=== PATIENT | female | born 1970 | race Two or more races ===

== ENCOUNTER 2024-11-28 01:41 | Inpatient (IN) | payer BC, OTHER ==
[2024-11-28] VITALS (15 sets, daily range): BP systolic 108–162; BP diastolic 54–87; PULSE 78–89; RESP 12–20; TEMP 97.5–101.9; O2SAT 92–98
[~2024-11-28] VITALS: Ht 172.7 cm; Wt 180.2 kg
[2024-11-28 02:26] LABS: Hematocrit 39.1 % (36.0-46.0); Hemoglobin 13.0 g/dL (12.2-16.2); Mean Corpuscular Hemoglobin 30.3 pg (28.0-32.0); Mean Corpuscular Volume 91.4 fL (80.0-100.0); Nucleated Red Blood Cells % 0.1 %
[2024-11-28 02:35] LABS: Chloride 103 mmol/L (98-107); Potassium 3.5 mmol/L (3.5-5.1); Sodium 140 mmol/L (136-145)
[2024-11-28 02:37] LABS: Calcium 9.1 mg/dL (8.7-10.4)
[2024-11-28 02:38] LABS: Anion Gap 8 (5-15); Carbon Dioxide 29 mmol/L (20-31)
[2024-11-28 02:41] LABS: Glucose 95 mg/dL (74-106)
[2024-11-28 02:42] LABS: BUN/Creatinine Ratio 15.6 (10.0-20.0); Blood Urea Nitrogen 17 mg/dL (9-23)
--- NOTE | 2024-11-28 02:42 | ED.PDOC ---
History of Present Illness HPI Comments 54-year-old female, with a history of CHF, COPD, and HTN, is brought in by ambulance as a transfer from [facility] ([facility]) for chief complaint of shortness of breath. Per [facility] transfer record, patient was transferred after being, initially, evaluated, due to being suspected on having an NSTEMI II and need for possible heart catheterization. Patient was noted to have been found with a fever and a room O2 saturation of 80%, had a negative RUQ US, and given Lasix after missing two day's worth of medication dosages. At time of evaluation, patient reports on calling 911 and being seen at [facility] for abdominal pain, nausea, gagging, poor appetite, fever, wheezing, and generalized weakness. She also states on, intentionally, not taking her Lasix, due to how they make her feel 'bad.' Denies any chest pain, vomiting, urinary problems, or further acute symptoms. REVIEW OF SYSTEMS: General: Fever, no chills or fatigue HEENT: No sore throat, no earache, no congestion, no neck pain. Cardiac: No chest pain. No palpitations. Lungs: Shortness of breath, wheezing, no cough GI: Abdominal pain, nausea, poor appetite, no vomiting : No dysuria, frequency, or urgency. No hematuria. Musculoskeletal: No joint pain , no joint swelling, no extremity edema. Skin: No rash, no itching. Neuro: Weakness, no headache or dizziness PHYSICAL EXAM: General: Awake, alert and oriented. No acute distress. Skin: Skin in warm, dry and intact. Appropriate color for ethnicity. HEENT: The head is normocephalic and atraumatic. Conjunctivae are clear without exudates or hemorrhage. Sclera is non-icteric. EOM are intact. No signs of nystagmus. Eyelids are normal in appearance without swelling or lesions. Oral mucosa is pink and moist Neck: The neck is supple with normal range of motion. No JVD. Cardiac: Heart rate and rhythm are normal. No murmurs, gallops, or rubs are auscultated. Respiratory: No signs of respiratory distress. Rales in bilateral bases. Otherwise, lung sounds are clear in all lobes bilaterally without rhonchi, or wheezes. Abdominal: Abdomen is soft, non-tender without distention, guarding or rigidity. Bowel sounds are present and normoactive in all four quadrants. Extremities: Upper and lower extremities are atraumatic in appearance without deformity or edema. Neurological: The patient is awake, alert and oriented to person, place, and time with normal speech. Speech is clear. There is no facial asymmetry. Psychiatric: Appropriate mood and affect. Good judgement and insight. Chief Complaint: Shortness of Breath Time Seen by MD: 02:20 Reviewed Notes: Nurses Notes, Game Producer Notes, Medications, Allergies Allergies: Coded Allergies: NO KNOWN ALLERGIES (Unverified , 11/28/24) Home Meds Reported Medications Benazepril HCl (Benazepril Hydrochloride) 10 Mg Tab, 10 MG PO, TAB 11/28/24 Triamterene (Triamterene) 50 Mg Cap, 50 MG PO, CAP 11/28/24 Furosemide (Lasix) 40 Mg Tab, 40 MG PO BID, TAB 11/28/24 Information Source: Patient, Transfer Record, Emergency Med Personnel Mode of Arrival: Ambulatory Severity: Moderate Timing: Hours Duration: Since onset Prehospital treatment: 12 Lead EKG, Accucheck, [employer]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 Was a procedure done?: No EKG EKG : Pulse Rate (adult): 79 [place]: Normal Cardiac Rhythm: NSR Block: None Hypertrophy: None ST: Normal Differential Dx Considerations may include: Differential diagnoses considered includebut arenot limited to acute Bronchitis, Asthma, COPD, Pneumothorax, PE, CHF, Pulmonary HTN, Anemia, CO Poisoning, Methemoglobinemia, Hyperventilation, Metabolic Acidosis, Pulmonary Edema, Pneumonia, ACS, Pericardial Tamponade, Anxiety, other X-Ray, Labs, Meds, VS Vital Signs Date Time Temp Pulse Resp B/P (MAP) Pulse Ox O2 Delivery O2 Flow Rate FiO2 11/28/24 04:00 80 11/28/24 03:37 79 11/28/24 03:01 79 11/28/24 03:00 78 16 144/81 (102) 98 11/28/24 02:00 98.1 81 12 130/75 (93) 93 98.1 11/28/24 02:00 81 12 96 Nasal Cannula* 6 44 11/28/24 01:41 98.3 82 22 127/83 94 98.3 Lab Test 11/28/24 02:14 Range/Units White Blood Count 4.2 L 4.4-10.8 10^3/uL Red Blood Count 4.28 4.0-5.20 10^6/uL Hemoglobin 13.0 12.2-16.2 g/dL Hematocrit 39.1 36.0-46.0 % Mean Corpuscular Volume 91.4 80.0-100.0 fL Mean Corpuscular Hemoglobin 30.3 28.0-32.0 pg Mean Corpuscular Hemoglobin Concent 33.2 32.0-36.0 g/dL Red Cell Distribution Width 15.9 H 11.8-14.3 % Platelet Count 222 140-450 10^3/uL Mean Platelet Volume 8.3 6.9-10.8 fL Neutrophils (%) (Auto) 64.2 37.0-80.0 % Lymphocytes (%) (Auto) 21.5 10.0-50.0 % Monocytes (%) (Auto) 13.5 H 0.0-12.0 % Eosinophils (%) (Auto) 0.0 0.0-7.0 % Basophils (%) (Auto) 0.8 0.0-2.0 % Neutrophils # (Auto) 2.7 1.6-8.6 10 ^3/uL Lymphocytes # (Auto) 0.9 0.4-5.4 10 ^3/uL Monocytes # (Auto) 0.6 0-1.3 10 ^3/uL Eosinophils # (Auto) 0 0-0.8 10 ^3/uL Basophils # (Auto) 0 0-0.2 10 ^3/uL Nucleated Red Blood Cells 0.1 % Sodium Level 140 136-145 mmol/L Potassium Level 3.5 3.5-5.1 mmol/L Chloride Level 103 98-107 mmol/L Carbon Dioxide Level 29 20-31 mmol/L Anion Gap 8 5-15 Blood Urea Nitrogen 17 9-23 mg/dL Creatinine 1.09 H 0.550-1.02 mg/dL Glomerular Filtration Rate Calc 60 >90 mL/min BUN/Creatinine Ratio 15.6 10.0-20.0 Serum Glucose 95 74-106 mg/dL Calcium Level 9.1 8.7-10.4 mg/dL Troponin I High Sensitivity 322 *H </=34 ng/L B-Type Natriuretic Peptide 181.20 0-100 pg/mL Time of 1ST Reevaluation: 02:50 Reevaluation 1ST: Unchanged Patient Education/Counseling: Diagnosis, Treatment Family Education/Counseling: No Family Present SEPSIS Sepsis Screen Date sepsis recognized/suspect: Nov 28, 2024 Time Sepsis recognized/suspect: 199 Recent Procedure: No On Antibiotic Therapy: No Respiratory Rate >20: No Heart Rate >90: No Temp<36 C (96.8 F) or >38.3 C: No SBP <90 or MAP <65 mmHG: No New Acute Mental Status Change: No Is the patient on CPAP, BIPAP,: No Physician Orders Chest Xray 1 View (11/28/24 02:03) Jay Catheters (11/28/24 ) Dme: Hospital Bed (11/28/24 02:46) Vital Signs Date Time Temp Pulse Resp B/P (MAP) Pulse Ox O2 Delivery O2 Flow Rate FiO2 11/28/24 04:00 80 11/28/24 03:37 79 11/28/24 03:01 79 11/28/24 03:00 78 16 144/81 (102) 98 11/28/24 02:00 98.1 81 12 130/75 (93) 93 98.1 11/28/24 02:00 81 12 96 Nasal Cannula* 6 44 11/28/24 01:41 98.3 82 22 127/83 94 98.3 Laboratory Tests Test 11/28/24 02:14 White Blood Count 4.2 10^3/uL (4.4-10.8) L Departure 1 Departure Time of Disposition: 20:33 Impression: Primary Impression: NSTEMI (non-ST elevated myocardial infarction) Disposition: ADMITTED INPATIENT Condition: Stable Comments MDM: Patient is stabilized in the ED. Patient admitted to hospitalist service for further treatment, evaluation and monitoring. Extensive evaluation was performed in attempt to identify or rule out: (See differential diagnosis section) The following tests were ordered, and results were reviewed by me and discussed with patient: (See diagnostic results section) The following test were independently interpreted by me: PCO2 I reviewed and agreed with the following test results read by other providers: Chest x-ray I reviewed the following notes from the pt's past medical encounters: N/A Additional information was gathered from interviewing the following independent historians: EMS personnel and medical transfer record Discussion of management or test interpretation with external physician/other q ualified health transitions rn care coordinator: N/A Addressed an acute or chronic illness that poses a threat to life or bodily function: NSTEMI Decision regarding hospitalization or escalation of hospital level of care: Risk and benefits of admission for further treatment of patient's condition was considered. Due to patient's current clinical condition, high risk of decline and poor outcome if discharged and need for further inpatient management and monitoring, patient will be admitted to the hospital. Critical Care Note Critical Care Time?: No Stability Stability form required: No Heart Score Heart Score: Heart Score Response (Comments) Value History Highly Suspicious 2 EKG Normal 0 Age 45-64 1 Risk Factors >3 or Hx ASHD 2 Troponin >3 x's Normal limit 2 Total 7 I personally scribed for DARLENE HU MD ([email or web address]) on 11/28/24 at 02:42. Electronically submitted by Helder Mahan ([email or web address]). I personally scribed for DARLENE HU MD ([email or web address]) on 11/28/24 at 03:37. Electronically submitted by Helder Mahan [email or web address]). DARLENE HU MD Nov 28, 2024 02:42
--- NOTE | 2024-11-28 03:02 | ECG ---
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
--- NOTE | 2024-11-28 03:44 | DVH ---
CHEST RADIOGRAPH Indication: sob Technique: Single frontal view of the chest was obtained COMPARISON: XR CHEST 1 VIEW on DOS: 11/27/24 FINDINGS: Lines and Tubes: None Lungs: Limited visualization of the lung daniels secondary to overlying soft tissues. No gross evidenc e of consolidation. Cardiomediastinal contours: Unremarkable Bones: Unremarkable IMPRESSION: 1. Limited visualization of the lung daniels secondary to overlying soft tissues. 2. No gross evidence of consolidation.
[2024-11-28] MEDS ORDERED: MORPHINE SULFATE INJ 2 MG/ml SYRG IV PRN (04:30)
[2024-11-28] MEDS ORDERED: NITROGLYCERIN 0.4 MG SL TAB SL PRN (04:30)
--- NOTE | 2024-11-28 04:38 | DVHHP2 ---
History of Present Illness Reason for Visit: Shortness for breath History of Present Illness 54-year-old female being transferred from [facility] for evaluation of possible NSTEMI. Patient presented to outside facility with complaints of shortness for breath. Patient reports not taking her Lasix over the past three days because of the constant urination. She also complained of abdominal pain for which she had a right upper quadrant ultrasound which was negative for acute pathology. Currently denies chest pain. No nausea or vomiting. No other acute complaints. Past Medical History Hypertension, CHF, COPD Past Surgical History None Family History Noncontributory Smoke: No ALCOHOL: none Drugs: None Lives: with Family Review of Systems Review of Systems Review of systems are currently negative otherwise addressed in HPI. Allergies: Coded Allergies: NO KNOWN ALLERGIES (Unverified , 11/28/24) Exam Vital Signs Vital Signs Date Time Temp Pulse Resp B/P (MAP) Pulse Ox O2 Delivery O2 Flow Rate FiO2 11/28/24 04:00 80 11/28/24 03:00 16 144/81 (102) 98 11/28/24 02:00 98.1 98.1 11/28/24 02:00 Nasal Cannula* 6 44 Exam Gen: 54-year-old female in mild distress, morbidly obese Skin: Warm, dry, normal color and texture, no rash. HEENT: Normocephalic atraumatic, mucous membranes moist and pink. Neck: Cervical and supraclavicular nodes normal without enlargement, trachea is midline, thyroid gland is normal without masses. Pulmonary: Clear to auscultation and percussion bilaterally. Cardiac: Regular rate and rhythm. No murmur Abdomen: Soft, nontender, nondistended, bowel sounds present all 4 quadrants, no guarding, no rigidity, no organomegaly. Extremities: No cyanosis, clubbing, no edema Neuro: Cranial nerves II through XII grossly intact, normal affect and speech, no focal motor deficits. Labs/Xrays ORDERING PHYSICIAN: DARLENE HU MD PROCEDURE(s): CXR1 - CHEST XRAY 1 VIEW REASON: sob ORDER NUMBER(s): [id number], ACCESSION NUMBER(s): [id number] CHEST RADIOGRAPH Indication: sob Technique: Single frontal view of the chest was obtained COMPARISON: XR CHEST 1 VIEW on DOS: 11/27/24 FINDINGS: Lines and Tubes: None Lungs: Limited visualization of the lung daniels secondary to overlying soft tissues. No gross evidence of consolidation. Cardiomediastinal contours: Unremarkable Bones: Unremarkable IMPRESSION: 1. Limited visualization of the lung daniels secondary to overlying soft tissues. 2. No gross evidence of consolidation. Labs Test 11/28/24 02:14 Range/Units White Blood Count 4.2 L 4.4-10.8 10^3/uL Red Blood Count 4.28 4.0-5.20 10^6/uL Hemoglobin 13.0 12.2-16.2 g/dL Hematocrit 39.1 36.0-46.0 % Mean Corpuscular Volume 91.4 80.0-100.0 fL Mean Corpuscular Hemoglobin 30.3 28.0-32.0 pg Mean Corpuscular Hemoglobin Concent 33.2 32.0-36.0 g/dL Red Cell Distribution Width 15.9 H 11.8-14.3 % Platelet Count 222 140-450 10^3/uL Mean Platelet Volume 8.3 6.9-10.8 fL Neutrophils (%) (Auto) 64.2 37.0-80.0 % Lymphocytes (%) (Auto) 21.5 10.0-50.0 % Monocytes (%) (Auto) 13.5 H 0.0-12.0 % Eosinophils (%) (Auto) 0.0 0.0-7.0 % Basophils (%) (Auto) 0.8 0.0-2.0 % Neutrophils # (Auto) 2.7 1.6-8.6 10 ^3/uL Lymphocytes # (Auto) 0.9 0.4-5.4 10 ^3/uL Monocytes # (Auto) 0.6 0-1.3 10 ^3/uL Eosinophils # (Auto) 0 0-0.8 10 ^3/uL Basophils # (Auto) 0 0-0.2 10 ^3/uL Nucleated Red Blood Cells 0.1 % Sodium Level 140 136-145 mmol/L Potassium Level 3.5 3.5-5.1 mmol/L Chloride Level 103 98-107 mmol/L Carbon Dioxide Level 29 20-31 mmol/L Anion Gap 8 5-15 Blood Urea Nitrogen 17 9-23 mg/dL Creatinine 1.09 H 0.550-1.02 mg/dL Glomerular Filtration Rate Calc 60 >90 mL/min BUN/Creatinine Ratio 15.6 10.0-20.0 Serum Glucose 95 74-106 mg/dL Calcium Level 9.1 8.7-10.4 mg/dL Troponin I High Sensitivity 322 *H </=34 ng/L B-Type Natriuretic Peptide 181.20 0-100 pg/mL SEPSIS Sepsis Screen Date sepsis recognized/suspect: Nov 28, 2024 Time Sepsis recognized/suspect: 199 Recent Procedure: No On Antibiotic Therapy: No Respiratory Rate >20: No Heart Rate >90: No Temp<36 C (96.8 F) or >38.3 C: No SBP <90 or MAP <65 mmHG: No New Acute Mental Status Change: No Is the patient on CPAP, BIPAP,: No Physician Orders Chest Xray 1 View (11/28/24 02:03) Jay Catheters (11/28/24 ) Dme: Hospital Bed (11/28/24 02:46) Troponin-I Hs (11/28/24 04:08) Troponin-I Hs (11/28/24 05:08) * Cardiology Consult (11/28/24 04:29) Lisinopril Tablet (Zestril Tablet) (11/28/24 10:00) Aspirin Tablet (11/28/24 10:00) Vital Signs Date Time Temp Pulse Resp B/P (MAP) Pulse Ox O2 Delivery O2 Flow Rate FiO2 11/28/24 04:00 80 11/28/24 03:37 79 11/28/24 03:01 79 11/28/24 03:00 78 16 144/81 (102) 98 11/28/24 02:00 98.1 81 12 130/75 (93) 93 98.1 11/28/24 02:00 81 12 96 Nasal Cannula* 6 44 11/28/24 01:41 98.3 82 22 127/83 94 98.3 Laboratory Tests Test 11/28/24 02:14 White Blood Count 4.2 10^3/uL (4.4-10.8) L Assessment/Plan Assessment/Plan Assessment Acute on chronic respiratory failure Rule out NSTEMI CHF Morbid obesity Hypertension Noncompliant Plan Admit the patient to telemetry to the hospitalist Cardiology consultation Resume home medications Echocardiogram pending Continue treatment per orders. Plan discussed with: Patient My Orders Orders - NINI DE LOS SANTOS Procedure Category Date Status Time Troponin-I Hs LAB 11/28/24 Logged 04:08 Troponin-I Hs LAB 11/28/24 Logged 05:08 * Cardiology Consult CONS 11/28/24 Verified 04:29 Lisinopril Tablet PHA 11/28/24 Verified (Zestril Tablet) 10:00 Aspirin Tablet PHA 11/28/24 Verified 10:00 Date of Service: Nov 28, 2024 Billing Provider: NINI DE LOS SANTOS Common Visit Codes: [id number] INP/OBS CARE (HIGH) NINI DE LOS SANTOS Nov 28, 2024 04:38
[2024-11-28] MEDS: ONDANSETRON HCL 4 MG/2 ML VIAL IV PRN (05:01)
[2024-11-28 05:24] LABS: INR 1.09 (0.9-1.15); Partial Thromboplastin Time 23.6 SEC (24.5-34.5); Prothrombin Time 11.5 sec (9.3-11.8)
[2024-11-28] MEDS: HYDROcodone-ACET 5/325MG TAB PO ONE (05:28)
[2024-11-28] MEDS: ALBUTEROL SULF 2.5 MG/0.5ML(0.5%) NEB SOLN NEB PRN (05:43)
[2024-11-28] MEDS ORDERED: FUROSEMIDE 40 MG TAB PO SCH (10:00)
--- NOTE | 2024-11-28 10:16 | DVHCONRES ---
Date Seen: Nov 28, 2024 Resident Creating Document: CELE MENCHACA RESIDENT Referring Physician Hiren ALU History of Present Illness 54-year-old female was transferred from [facility] for the evaluation of elevated troponins. Patient presented to [facility] on 11/27 for the evaluation of shortness of breaths and abdominal pain, she was found to be febrile and hypoxic, temperature 101.7 F, respiratory rate 30, SpO2 80% per EMS, she was placed on oxygen and was saturating 92 on 3 L. initial blood pressure was 160/71 mmHg. She received Dilaudid, aspirin, nitroglycerin. BNP was 3 2 7. Chest x-ray showing interstitial edema. D-dimer 0.7, negative. She received ceftriaxone and azithromycin for possible overlying pneumonia. Per patient, she lives in [place] and currently was visiting her son and [place], she had episode of urinary incontinence followed which she a thicker Lasix for the past 2 days. Since then patient has been having abdominal pain, fever, chills, shortness of breaths and has been experiencing lower extremity swelling. She denies active chest pain, palpitations, urinary symptoms at this time. She has not had a lifetime left heart catheterization or a recent echo. Past medical history: CHF-unknown EF, hypertension, gallstones, COPD on 2-3 L home oxygen Home medications: Triamterene, benazepril, albuterol inhaler, seebri inhaler, Lasix 40 mg b.i.d. p.o. tablets Social history: Lives in [place], smokes 1-2 cigarettes, previously smoked a pack a day, denies drug use Patient seen and examined currently on 4 L oxygen, bilateral wheezing heard on auscultation, bilateral pitting edema. Allergies: Coded Allergies: NO KNOWN ALLERGIES (Unverified , 11/28/24) Current Medications Current Medications Medications (Trade) Dose Ordered Sig/Oswaldo Route PRN Reason Start Time Stop Time Status Last Admin Lisinopril (Zestril Tablet) 10 mg DAILY PO 11/28/24 10:00 Aspirin 162 mg DAILY PO 11/28/24 10:00 Atorvastatin Calcium (Lipitor) 20 mg HS PO 11/28/24 22:00 11/28/24 10:15 DC Furosemide (Lasix Tablet) 40 mg DAILY PO 11/28/24 10:00 11/28/24 10:15 DC Ondansetron HCl (Zofran) 4 mg Q4HP PRN IV NAUSEA / VOMITING 11/28/24 04:30 11/28/24 05:01 Acetaminophen (Tylenol Tablet) 650 mg Q6HP PRN PO PAIN SCALE 1-3 OR TEMP>100.4 11/28/24 04:30 Nitroglycerin (Ntrostat Sublingual) 0.4 mg Q5MINP PRN SL FOR CHEST PAIN 11/28/24 04:30 Morphine Sulfate 2 mg Q30M PRN IV FOR CHEST PAIN 11/28/24 04:30 Albuterol (Ventolin Medneb) 2.5 mg Q6HPRN PRN NEB SHORTNESS OF BREATH 11/28/24 04:45 11/28/24 10:15 DC 11/28/24 05:43 Atorvastatin Calcium (Lipitor) 40 mg HS PO 11/28/24 22:00 UNV Furosemide (Lasix Injection) 40 mg BIDD IV 11/28/24 10:15 UNV Ipratropium [place] (Atrovent Medneb) 0.5 mg Q6HR NEB 11/28/24 12:00 UNV Levalbuterol HCl (Xopenex Medneb) 0.625 mg Q6HR NEB 11/28/24 12:00 UNV Budesonide (Pulmicort) 0.25 mg BID NEB 11/28/24 12:00 UNV Review of Systems Eyes: No Pain, No Vision change, No Conjunctivae inflammation, No Eyelid inflammation, No Other, No Redness ENT: No Ear pain, No Ear discharge, No Nose pain, No Nose discharge, No Nose congestion, No Mouth pain, No Mouth swelling, No Throat pain, No Throat swelling, No Other Cardiovascular: No Chest Pain, No Palpitations, No Orthopnea, No PND, No Edema, No Lt Headedness, No Other Respiratory: Reports shortness of breaths, No Cough, No Dry, No Wheezing, No Hemoptysis, No Pleuritic Pain, No Sputum, No Other Gastrointestinal: Reports abdominal pain, poor appetite, nausea, No Diarrhea, No Constipation, No Melena, No Hematochezia, No Other Genitourinary: No Dysuria, No Frequency, No Incontinence, No Hematuria, No Re tention, No Other Musculoskeletal: Lower extremity swelling No other, No neck pain, No shoulder pain, No arm pain, No back pain, No hand pain, No leg pain, No foot pain Skin: No Rash, No Lesions, No Jaundice, No Bruising, No Other Vital Signs Vital Signs Date Time Temp Pulse Resp B/P (MAP) Pulse Ox O2 Delivery O2 Flow Rate FiO2 11/28/24 08:50 97.5 78 20 108/54 95 6.0 44 97.5 11/28/24 07:59 Nasal Cannula* Physical Exam Morbidly obese female patient lying in the bed in ER, mild distress General: Morbidly obese, warm, low-grade fever, palor, mucosae are moist Cardiovascular: Regular S1 and S2. No murmurs, gallops or rubs. No JVD elevation. 2+ pitting edema bilaterally Respiratory: Bilateral wheezing and crackles heard on auscultation, decreased air entry, on NC supplementation Abdomen: Soft, nontender, nondistended, hypoactive bowel sounds, no rebound tenderness, no organomegaly, no masses Genitourinary: Jay seen draining yellowish urine MSK/skin: Mobilizes 4 limbs. Skin is dry and warm Neurological: No motor, no sensitive deficits, normal speech. Pupils are isocoric and reactive. Psych/Mental Status: A/Ox3 Labs/Diagnostic Data Labs Test 11/28/24 07:00 11/28/24 04:58 11/28/24 02:14 Range/Units Troponin I High Sensitivity 214 *H </=34 ng/L Prothrombin Time 11.5 9.3-11.8 sec Prothrombin Time INR 1.09 0.9-1.15 Activated Partial Thromboplast Time 23.6 L 24.5-34.5 SEC White Blood Count 4.2 L 4.4-10.8 10^3/uL Red Blood Count 4.28 4.0-5.20 10^6/uL Hemoglobin 13.0 12.2-16.2 g/dL Hematocrit 39.1 36.0-46.0 % Mean Corpuscular Volume 91.4 80.0-100.0 fL Mean Corpuscular Hemoglobin 30.3 28.0-32.0 pg Mean Corpuscular Hemoglobin Concent 33.2 32.0-36.0 g/dL Red Cell Distribution Width 15.9 H 11.8-14.3 % Platelet Count 222 140-450 10^3/uL Mean Platelet Volume 8.3 6.9-10.8 fL Neutrophils (%) (Auto) 64.2 37.0-80.0 % Lymphocytes (%) (Auto) 21.5 10.0-50.0 % Monocytes (%) (Auto) 13.5 H 0.0-12.0 % Eosinophils (%) (Auto) 0.0 0.0-7.0 % Basophils (%) (Auto) 0.8 0.0-2.0 % Neutrophils # (Auto) 2.7 1.6-8.6 10 ^3/uL Lymphocytes # (Auto) 0.9 0.4-5.4 10 ^3/uL Monocytes # (Auto) 0.6 0-1.3 10 ^3/uL Eosinophils # (Auto) 0 0-0.8 10 ^3/uL Basophils # (Auto) 0 0-0.2 10 ^3/uL Nucleated Red Blood Cells 0.1 % Sodium Level 140 136-145 mmol/L Potassium Level 3.5 3.5-5.1 mmol/L Chloride Level 103 98-107 mmol/L Carbon Dioxide Level 29 20-31 mmol/L Anion Gap 8 5-15 Blood Urea Nitrogen 17 9-23 mg/dL Creatinine 1.09 H 0.550-1.02 mg/dL Glomerular Filtration Rate Calc 60 >90 mL/min BUN/Creatinine Ratio 15.6 10.0-20.0 Serum Glucose 95 74-106 mg/dL Calcium Level 9.1 8.7-10.4 mg/dL B-Type Natriuretic Peptide 181.20 0-100 pg/mL Assessment Acute on chronic CHF exacerbation-NYHA class 3-EF unknown Acute on chronic hypoxic respiratory failure Likely COPD exacerbation due to above NSTEMI likely type 2 Chronic oxygen dependence Hypertension Cholelithiasis Plan/Recommendation No active chest pain at this time. Given the clinical picture and chest x-ray, patient is likely having acute on chronic CHF exacerbation. We recommend IV diuresis with Lasix 40 mg b.i.d., strict I&Os and fluid restriction at this time. Follow up with the echocardiogram Follow up with lipid panel, TSH, hepatic panel Nebulized treatment q.6 hours Recommend Antibiotics for probable pneumonia Troponins downtrending, likely NSTEMI type 2 We will continue to follow up Plan discussed with the patient in which all questions have been answered Case discussed with Dr. Alvarado PT SEEN AND EXAMINED WITH CV TEAM AGREE WITH RESIDENT ASSESSMENT AND PLAN BMI OF 60!, CONT HF MANAGEMENT BNP CAN BE LOW WITH HER SIZE CONT LASIX Plan discussed with: Patient CELE MENCHACA RESIDENT Nov 28, 2024 10:15 KIA ALVARADO MD Nov 28, 2024 17:36
[2024-11-28] MEDS: LISINOPRIL 5 MG TAB PO SCH (10:25)
[2024-11-28] MEDS: FUROSEMIDE 40 MG/4 ML VIAL IV SCH (10:55)
--- NOTE | 2024-11-28 10:57 | DVH ---
CHEST RADIOGRAPH Indication: congestion Technique: Single frontal view of the chest was obtained Comparison: XY CHEST XRAY 1 VIEW on DOS: 11/28/24, XR CHEST 1 VIEW on DOS: 11/27/24 FINDINGS: Lines and Tubes: None Lungs: No focal consolidation. Pleura: No effusion. No pneumothorax. Cardiomediastinal contours: Cardiomegaly. Bones: No acute osseous abnormality. IMPRESSION: Cardiomegaly with CHF.
[2024-11-28 11:06] LABS: Triglycerides 89 mg/dL (< 150)
[2024-11-28 11:08] LABS: Cholesterol 148 mg/dL (< 200); HDL Cholesterol 57 mg/dL (40-59)
[2024-11-28] MEDS: IPRATROPIUM BROM 0.5 MG/2.5ML INH SOL NEB SCH (11:32)
[2024-11-28] MEDS: BUDESONIDE (INHALATION) 0.5 MG/2 ML NEB NEB SCH (11:32)
[2024-11-28] MEDS: LEVALBUTEROL HCL 1.25 MG/3 ML NEB NEB SCH (11:32)
[2024-11-28 12:48] LABS: COVID19 ANTIGEN SOFIA FIA NEGATIVE (NEGATIVE)
--- NOTE | 2024-11-28 15:36 | DVHSR ---
APPROVED REPORT EXAM: LIMITED Two-dimensional and M-mode echocardiogram with Doppler and color Doppler. Blood Pressure: 124/60 mmHg INDICATION Chest Pain RISK FACTORS Obesity: Height: 5'8", Weight: 429 DIMENSIONS LVDd (3.8-5.7cm)LA (2D)3.7 (1.9-4.0cm)Aortic Root (2.0-3.7cm) EF (%) 64.0 (55-70%)Rt. Atrium3.6 (1.9-4.0cm)Asc. Aorta cm Mitral Valve MitralMitral Stenosis E wave0.80m/sMV Mean GR.mmHg A wave0.86m/sMV Peak GR.mmHg E/A ratio0.92D MVAcm2 DECEL [id number] 1/2 Timems Aortic Valve Aortic ValveAortic Stenosis V11.10m/Naima Mean GR.8mmHg V21.98m/Naima Peak GR.16mmHg LVOT Diameter2.1 (1.8-2.4cm)Doppler AVA1.92cm2 Tricuspid Valve TR Velocity3.74m/s [id number] Other Information Quality : Technically LimitedRhythm : Technically limited study due to body habitus, patient sitting up. Conclusion lvef 55% normal rv function, RV enlargd left atrium enlarged no severe valve abnormalities noted
[2024-11-28] MEDS ORDERED: KETOROLAC TROMETH 30 MG/ML 1ML VIAL IV PRN (16:00)
--- NOTE | 2024-11-28 16:09 | DVH ---
ABDOMINAL ULTRASOUND CLINICAL HISTORY: Abdominal Pain TECHNIQUE: Multiple grayscale and color Doppler ultrasound images were obtained of the abdomen. WID: COMPARISON: US GALLBLADDER on DOS: 11/27/24 FINDINGS: Examination is not complete as the patient terminated the exam. Examination is also limited due to avila long's body habitus. Liver and Biliary System: Enlarged measuring 27.2 cm. No focal hepatic observations. No definite i ntrahepatic bile duct dilatation. The common duct is not visualized.. The gallbladder is normal ca liber containing sludge and cholelithiasis.. Pancreas: Not well seen due to overlying bowel gas. Spleen: Not imaged. Kidneys: The right kidney is 9.2 cm . The left kidney is not imaged. No hydronephrosis, increased e chogenicity, shadowing stone, or focal lesion. IVC: Visualized portions are normal in caliber. Peritoneal Space: No abdominopelvic ascites. IMPRESSION: 1. Evaluation is not optimal due to patient's body habitus and patient terminated the exam early. 2. Hepatomegaly. 3. Cholelithiasis and gallbladder sludge.
[2024-11-28] MEDS: predniSONE 20 MG TAB PO ONE (16:20)
--- NOTE | 2024-11-28 17:07 | DVHPN2 ---
Assessment/Plan Assessment/Plan progress note 54 yo F w morbid obesity, asthma, smoker, COPD? on home o2, HTN, gallstone, chronic pain, HFpEF transferred from OSH for elevated trop. Had fever in OSH. Patient on chronic pain management. Reported never had sleep study, and was pending PFT for COPD, but has childhood asthma and was on dulera and Ventolin. physical exam aox4 morbidly obese diffuse wheezing, crackles not appreciated heart sounds diminished due to habitus abdomen obese, mckeon negative no suprapubic pain or cva tenderness b/l LE edema labs ekg imaging reviewed assessment and plan asthma exacerbation acute on chronic hypoxic RF COPD? no PFT home O2 morbid obesity HFpEF? acute on chronic diastolic HF pHTN? YANICK/OHS? chronic pain cholelithiasis Type 2 [place] demand ischemia fever? r/o cholecystitis Lasix, goal net -2L O2 maintain spo2 >94% breathing treatment prednisone ceft and azithro bipap at night strict i/o echo follow culture RUQUS HIDA if indeterminate poor candidate for surgery diet cardiac dvt ppx lovenox full code Plan discussed with: Patient My Orders Orders - MARILYN RUBIN MD Procedure Category Date Status Time Abdomen Complete US 11/28/24 Resulted Sonogram 15:00 Prednisone Tablet PHA 11/29/24 In Process 10:00 Bipap/Cpap For Sleep RT 11/28/24 Logged Apnea 15:49 Ketorolac Injection PHA 11/28/24 In Process (Toradol Injection) 16:00 Date of Service: Nov 28, 2024 Billing Provider: MARILYN RUBIN MD Common Visit Codes: [id number] INP/OBS CARE(HIGH) MARILYN RUBIN MD Nov 28, 2024 17:07
[2024-11-28] MEDS: ACETAMINOPHEN 325 MG TAB PO PRN (17:50)
[2024-11-28] MEDS: HYDROcodone-ACET 10/325MG TAB PO PRN (18:17)
[2024-11-28] MEDS: AZITHROMYCIN 500MG/ 250ML 250 ML IV ONE (18:18)
[2024-11-28 18:21] LABS: Urine Budding Yeast OCCASIONAL /hpf (None Seen); Urine Protein, UAD 1+ (Negative)
[2024-11-28 18:24] LABS: Amphetamine Screen, Urine Neg (NEGATIVE); Barbiturate Scree,Urine Neg (NEGATIVE); Benzodiazephine Screen, Urine Neg (NEGATIVE)
[2024-11-28 18:25] LABS: Cannabinoid Screen, Urine Neg (NEGATIVE); Cocaine Screen, Urine Neg (NEGATIVE); Opiate Scree,Urine Pos (NEGATIVE); Phencyclidine Screen, Urine Neg (NEGATIVE)
[2024-11-28 18:26] LABS: Alanine Aminotransferase 19.0 U/L (7-40); Albumin 4.0 g/dL (3.2-4.8); Alkaline Phosphatase 81.0 U/L (46-116); Bilirubin, Direct 0.1 mg/dL (<0.3); Total Protein 7.3 g/dL (5.7-8.2)
[2024-11-28 18:27] LABS: Bilirubin, Total 0.3 mg/dL (0.2-1.0)
[2024-11-28] MEDS ORDERED: FURO1TAB31 PO (18:53)
[2024-11-28] MEDS ORDERED: TRIA50CA43 PO (18:53)
[2024-11-28] MEDS ORDERED: BENA10TA93 PO (18:53)
[2024-11-28] MEDS: ATORVASTATIN 20 MG TAB PO SCH (21:31)
[2024-11-28] MEDS: ENOXAPARIN SOD 60 MG/0.6 ML SYRINGE SC SCH (21:32)
[2024-11-28] MEDS ORDERED: ATORVASTATIN 20 MG TAB PO SCH (22:00)
[2024-11-29] VITALS (18 sets, daily range): BP systolic 116–128; BP diastolic 64–83; PULSE 70–91; RESP 18–20; TEMP 97.7–100; O2SAT 92–99
[2024-11-29 06:58] LABS: Hematocrit 38.0 % (36.0-46.0); Hemoglobin 12.5 g/dL (12.2-16.2); Mean Corpuscular Hemoglobin 30.2 pg (28.0-32.0); Mean Corpuscular Volume 91.6 fL (80.0-100.0); Nucleated Red Blood Cells % 0.3 %
[2024-11-29 07:19] LABS: Alanine Aminotransferase 17 U/L (7-40); Albumin 4.2 g/dL (3.2-4.8); Alkaline Phosphatase 79 U/L (46-116); Anion Gap 7 (5-15); BUN/Creatinine Ratio 19.4 (10.0-20.0); Bilirubin, Total 0.3 mg/dL (0.2-1.0); Blood Urea Nitrogen 21 mg/dL (9-23); Calcium 8.9 mg/dL (8.7-10.4); Chloride 100 mmol/L (98-107); Magnesium 2.0 mg/dL (1.6-2.6); Potassium 3.5 mmol/L (3.5-5.1); Sodium 140 mmol/L (136-145); Total Protein 8.0 g/dL (5.7-8.2)
[2024-11-29 07:25] LABS: Carbon Dioxide 33 mmol/L (20-31); Glucose 134 mg/dL (74-106)
[2024-11-29] MEDS: AZITHROMYCIN 500MG/ 250ML 250 ML IV SCH (09:18)
[2024-11-29] MEDS: predniSONE 20 MG TAB PO SCH (09:20)
[2024-11-29] MEDS: POTASSIUM EFFERVESENT TAB 25 MEQ PO ONE (10:33)
--- NOTE | 2024-11-29 11:04 | DVHPN2 ---
Progress Note Date Seen: Nov 29, 2024 Resident Creating Document: CELE MENCHACA RESIDENT Medical Necessity Reason Pt with a Central, PICC or Fol: Yes The following are medically ne: Jay Catheter Subjective Review of Systems 54-year-old female was transferred from [facility] for the evaluation of elevated troponins. Patient presented to [place] on 11/27 for the evaluation of shortness of breaths and abdominal pain, she was found to be febrile and hypoxic, temperature 101.7 F, respiratory rate 30, SpO2 80% per EMS, she was placed on oxygen and was saturating 92 on 3 L. initial blood pressure was 160/71 mmHg. She received Dilaudid, aspirin, nitroglycerin. BNP was 3 2 7. Chest x-ray showing interstitial edema. D-dimer 0.7, negative. She received ceftriaxone and azithromycin for possible overlying pneumonia. Per patient, she lives in [place] and currently was visiting her son and [place], she had episode of urinary incontinence followed which she a thicker Lasix for the past 2 days. Since then patient has been having abdominal pain, fever, chills, shortness of breaths and has been experiencing lower extremity swelling. She denies active chest pain, palpitations, urinary symptoms at this time. She has not had a lifetime left heart catheterization or a recent echo. Past medical history: CHF-unknown EF, hypertension, gallstones, COPD on 2-3 L home oxygen Home medications: Triamterene, benazepril, albuterol inhaler, seebri inhaler, Lasix 40 mg b.i.d. p.o. tablets Social history: Lives in [place], smokes 1-2 cigarettes, previously smoked a pack a day, denies drug use 11/28-Patient seen and examined currently on 4 L oxygen, bilateral wheezing heard on auscultation, bilateral pitting edema. 11/29-minimal wheezing, patient feels better, reports more ambulation, expiratory crackles heard on auscultation, urine output greater than 3 L in 24 hours. Echocardiogram 55% LVEF, RVSP 71, T-max overnight 101.9 F, WBC trending down to 2.6 Objective vital signs Vital Sign Date Time Temp Pulse Resp B/P (MAP) Pulse Ox O2 Delivery O2 Flow Rate FiO2 11/29/24 09:19 116/64 11/29/24 08:30 98.3 70 19 92 98.3 11/29/24 05:48 Nasal Cannula 5.0 11/29/24 05:48 40 Total Intake and Output 11/28/24 11/28/24 11/29/24 15:00 23:00 07:00 Intake Total 300 ml 750 ml Output Total 2200 ml 1100 ml Balance -1900 ml -350 ml medications Current Medications Medications Dose Ordered Sig/Oswaldo Route Start Time Stop Time Status Last Admin Dose Admin Lisinopril 10 mg DAILY PO 11/28/24 10:00 11/29/24 09:19 10 MG Acetaminophen 650 mg Q6HP PRN PO 11/28/24 04:30 11/28/24 17:50 650 MG Atorvastatin Calcium 40 mg HS PO 11/28/24 22:00 11/28/24 21:31 40 MG Furosemide 40 mg BIDD IV 11/28/24 10:15 11/29/24 05:54 40 MG Ipratropium [place] 0.5 mg Q6HR NEB 11/28/24 12:00 11/29/24 05:47 0.5 MG Levalbuterol HCl 0.625 mg Q6HR NEB 11/28/24 12:00 11/29/24 05:47 0.625 MG Budesonide 0.25 mg BID NEB 11/28/24 12:00 11/29/24 05:47 0.25 MG Aspirin 81 mg DAILY PO 11/29/24 10:00 11/29/24 09:19 81 MG Prednisone 40 mg DAILY PO 11/29/24 10:00 11/29/24 09:20 40 MG Azithromycin 250 ml @ 125 mls/hr DAILY IV 11/29/24 10:00 11/29/24 09:18 125 MLS/HR Ceftriaxone Sodium 50 ml @ 100 mls/hr DAILY@09 IV 11/29/24 09:00 11/29/24 09:18 100 MLS/HR Acetaminophen/ Hydrocodone Bitart 1 tab Q8HP PRN PO 11/28/24 17:15 11/29/24 09:19 1 TAB Enoxaparin Sodium 60 mg BID SC 11/28/24 22:00 11/29/24 09:20 60 MG Examination Morbidly obese female patient lying in the bed in ER, mild distress General: Morbidly obese, warm, low-grade fever, palor, mucosae are moist Cardiovascular: Regular S1 and S2. No murmurs, gallops or rubs. No JVD elevation. 2+ pitting edema bilaterally Respiratory: Minimal Bilateral wheezing and expiratory crackles heard on auscultation, decreased air entry, on NC supplementation Abdomen: Soft, nontender, nondistended, hypoactive bowel sounds, no rebound tenderness, no organomegaly, no masses Genitourinary: Jay seen draining yellowish urine MSK/skin: Mobilizes 4 limbs. Skin is dry and warm Neurological: No motor, no sensitive deficits, normal speech. Pupils are isocoric and reactive. Psych/Mental Status: A/Ox3 laboratory and microbiology Laboratory Tests 11/29/24 06:05 Test 11/29/24 06:05 Range/Units Serum Glucose 134 H 74-106 mg/dL Labs and/or images reviewed: Labs reviewed by me, Image(s) reviewed by me Problem List/Assessment/Plan Problem List/Assessment/Plan Acute on chronic CHF exacerbation-NYHA class 3-EF unknown Acute on chronic hypoxic respiratory failure Likely COPD/asthma exacerbation due to above NSTEMI likely type 2 Chronic oxygen dependence Obesity hypoventilation/YANICK Hypertension Cholelithiasis Morbid obesity Plan/Recommendation Urine output 3300 mL in 24 hours, patient reports feeling better Continue IV diuresis with Lasix 40 mg b.i.d., strict I&Os and fluid restriction, leg elevation at this time. Echocardiogram LVEF 55%, RVSP 71 Continue CPAP HS Nebulized treatment q.6 hours Continue Antibiotics for probable pneumonia/COPD exacerbation Troponins downtrending, likely NSTEMI type 2 We will continue to follow up Plan discussed with the patient in which all questions have been answered Case discussed with Dr. Horne Plan discussed with: Patient My Orders My Orders Orders - CELE MENCHACA Procedure Category Date Status Time Azithromycin 500mg/ PHA 11/29/24 In Process 250ml (Zithromax 50 10:00 Communication Order ORDERS 11/28/24 Transmitted 17:09 CELE MENCHACA Nov 29, 2024 11:04
--- NOTE | 2024-11-29 14:51 | DVHPN2 ---
Assessment/Plan Assessment/Plan progress note 54 yo F w morbid obesity, asthma, smoker, COPD? on home o2, HTN, gallstone, chronic pain, HFpEF transferred from OSH for elevated trop. Had fever in OSH. Patient on chronic pain management. Reported never had sleep study, and was pending PFT for COPD, but has childhood asthma and was on dulera and Ventolin. seen today, improved. c/w iv abx and steroid and breathing treatment. not back to baseline yet, o2 rec 5. physical exam aox4 morbidly obese diffuse wheezing, crackles not appreciated heart sounds diminished due to habitus abdomen obese, mckeon negative no suprapubic pain or cva tenderness b/l LE edema labs ekg imaging reviewed assessment and plan asthma exacerbation acute on chronic hypoxic RF COPD? no PFT home O2 morbid obesity HFpEF? acute on chronic diastolic HF pHTN? YANICK/OHS? chronic pain cholelithiasis Type 2 [place] demand ischemia fever? r/o cholecystitis Lasix, goal net -2L O2 maintain spo2 >94% breathing treatment prednisone ceft and azithro bipap at night strict i/o echo follow culture RUQUS HIDA if indeterminate poor candidate for surgery diet cardiac dvt ppx lovenox full code Plan discussed with: Patient My Orders Orders - MARILYN RUBIN MD Procedure Category Date Status Time Abdomen Complete US 11/28/24 Resulted Sonogram 15:00 Prednisone Tablet PHA 11/29/24 In Process 10:00 Bipap/Cpap For Sleep RT 11/28/24 Logged Apnea 15:49 Ceftriaxone 1gm/50ml PHA 11/29/24 In Process (Rocephin) 09:00 Hydrocodone-Acet PHA 11/28/24 In Process 10/325mg Tab ([place] 17:15 Cardiac DIET 11/28/24 Transmitted Diet-2gna,Lofat,Lochol Dinner Enoxaparin Sodium PHA 11/28/24 In Process (Lovenox) 22:00 Date of Service: Nov 29, 2024 Billing Provider: MARILYN RUBIN MD Common Visit Codes: [id number] INP/OBS CARE(HIGH) MARILYN RUBIN MD Nov 29, 2024 14:51
[2024-11-30] VITALS (19 sets, daily range): BP systolic 101–126; BP diastolic 62–93; PULSE 66–91; RESP 18–21; TEMP 97.7–98.8; O2SAT 95–100
[2024-11-30 07:41] LABS: Hematocrit 37.7 % (36.0-46.0); Hemoglobin 12.6 g/dL (12.2-16.2); Mean Corpuscular Hemoglobin 30.5 pg (28.0-32.0); Mean Corpuscular Volume 91.7 fL (80.0-100.0); Nucleated Red Blood Cells % 0.5 %
[2024-11-30 08:38] LABS: Anion Gap 7 (5-15)
[2024-11-30 08:43] LABS: BUN/Creatinine Ratio 22.1 (10.0-20.0)
[2024-11-30 08:50] LABS: Chloride 103 mmol/L (98-107); Potassium 3.6 mmol/L (3.5-5.1); Sodium 143 mmol/L (136-145)
[2024-11-30 08:51] LABS: Blood Urea Nitrogen 27 mg/dL (9-23); Calcium 8.6 mg/dL (8.7-10.4); Carbon Dioxide 33 mmol/L (20-31); Glucose 91 mg/dL (74-106)
--- NOTE | 2024-11-30 09:24 | DVHPN2 ---
Assessment/Plan Assessment/Plan progress note 54 yo F w morbid obesity, asthma, smoker, COPD? on home o2, HTN, gallstone, chronic pain, HFpEF transferred from OSH for elevated trop. Had fever in OSH. Patient on chronic pain management. Reported never had sleep study, and was pending PFT for COPD, but has childhood asthma and was on dulera and Ventolin. seen today, clinically improved, but xray looks worst. AMA to smoke but refused NRT. tolerating bipap at night. slowing down diuresis physical exam aox4 morbidly obese diffuse wheezing, crackles not appreciated heart sounds diminished due to habitus abdomen obese, mckeon negative no suprapubic pain or cva tenderness b/l LE edema labs ekg imaging reviewed assessment and plan asthma exacerbation acute on chronic hypoxic RF COPD? no PFT home O2 morbid obesity HFpEF? acute on chronic diastolic HF pHTN? YANICK/OHS? chronic pain cholelithiasis Type 2 [place] demand ischemia fever? ruled out cholecystitis Lasix, goal net -2L O2 maintain spo2 >94% breathing treatment prednisone ceft and azithro bipap at night strict i/o echo follow culture RUQUS poor candidate for surgery NRT diet cardiac dvt ppx lovenox full code Plan discussed with: Patient My Orders Orders - MARILYN RUBIN MD Procedure Category Date Status Time Furosemide Tablet PHA 11/30/24 Transmitted (Lasix Tablet) 18:00 Date of Service: Nov 30, 2024 Billing Provider: MARILYN RUBIN MD Common Visit Codes: [id number] INP/OBS CARE(HIGH) MARILYN RUBIN MD Nov 30, 2024 09:24
--- NOTE | 2024-11-30 09:39 | DVH ---
CHEST RADIOGRAPH Indication: f/u congestion Technique: Single frontal view of the chest was obtained COMPARISON: XY CHEST XRAY 1 VIEW on DOS: 11/28/24, XY CHEST XRAY 1 VIEW on DOS: 11/28/24, XR CHEST 1 VIEW on DOS: 11/27/24 FINDINGS: Lines and Tubes: None Lungs: Congestion Pleura: No effusion. No pneumothorax. Cardiomediastinal contours: Unremarkable Bones: Unremarkable IMPRESSION: Increased interstital prominence. This may represent pulmonary vascular congestion and/or viral pneum onia. Clinical correlation advised.
--- NOTE | 2024-11-30 10:28 | DVHPN2 ---
Progress Note Date Seen: Nov 30, 2024 Resident Creating Document: CELE MENCHACA RESIDENT Medical Necessity Reason Pt with a Central, PICC or Fol: Yes The following are medically ne: Jay Catheter Subjective Review of Systems 54-year-old female was transferred from [facility] for the evaluation of elevated troponins. Patient presented to [place] on 11/27 for the evaluation of shortness of breaths and abdominal pain, she was found to be febrile and hypoxic, temperature 101.7 F, respiratory rate 30, SpO2 80% per EMS, she was placed on oxygen and was saturating 92 on 3 L. initial blood pressure was 160/71 mmHg. She received Dilaudid, aspirin, nitroglycerin. BNP was 3 2 7. Chest x-ray showing interstitial edema. D-dimer 0.7, negative. She received ceftriaxone and azithromycin for possible overlying pneumonia. Per patient, she lives in [place] and currently was visiting her son and [place], she had episode of urinary incontinence followed which she a thicker Lasix for the past 2 days. Since then patient has been having abdominal pain, fever, chills, shortness of breaths and has been experiencing lower extremity swelling. She denies active chest pain, palpitations, urinary symptoms at this time. She has not had a lifetime left heart catheterization or a recent echo. Past medical history: CHF-unknown EF, hypertension, gallstones, COPD on 2-3 L home oxygen Home medications: Triamterene, benazepril, albuterol inhaler, seebri inhaler, Lasix 40 mg b.i.d. p.o. tablets Social history: Lives in [place], smokes 1-2 cigarettes, previously smoked a pack a day, denies drug use 11/28-Patient seen and examined currently on 4 L oxygen, bilateral wheezing heard on auscultation, bilateral pitting edema. 11/29-minimal wheezing, patient feels better, reports more ambulation, expiratory crackles heard on auscultation, urine output greater than 3 L in 24 hours. Echocardiogram 55% LVEF, RVSP 71, T-max overnight 101.9 F, WBC trending down to 2.6 11/30-patient seen and examined, reports shortness of breaths when lying flat but otherwise feeling better. Urine output 2500 cc in 24 hours. Creatinine up trending. Objective vital signs Vital Sign Date Time Temp Pulse Resp B/P (MAP) Pulse Ox O2 Delivery O2 Flow Rate FiO2 11/30/24 09:36 114/76 11/30/24 08:55 97.7 73 18 95 97.7 11/30/24 08:05 Nasal Cannula* 4 36 Total Intake and Output 11/29/24 11/29/24 11/30/24 15:00 23:00 07:00 Intake Total 290 ml 600 ml 450 ml Output Total 1200 ml 1300 ml Balance 290 ml -600 ml -850 ml medications Current Medications Medications Dose Ordered Sig/Oswaldo Route Start Time Stop Time Status Last Admin Dose Admin Lisinopril 10 mg DAILY PO 11/28/24 10:00 11/30/24 09:36 10 MG Acetaminophen 650 mg Q6HP PRN PO 11/28/24 04:30 11/28/24 17:50 650 MG Atorvastatin Calcium 40 mg HS PO 11/28/24 22:00 11/29/24 21:36 40 MG Ipratropium [place] 0.5 mg Q6HR NEB 11/28/24 12:00 11/30/24 06:49 0.5 MG Levalbuterol HCl 0.625 mg Q6HR NEB 11/28/24 12:00 11/30/24 06:48 0.625 MG Budesonide 0.25 mg BID NEB 11/28/24 12:00 11/30/24 06:49 0.25 MG Aspirin 81 mg DAILY PO 11/29/24 10:00 11/30/24 09:32 81 MG Prednisone 40 mg DAILY PO 11/29/24 10:00 11/30/24 09:32 40 MG Azithromycin 250 ml @ 125 mls/hr DAILY IV 11/29/24 10:00 11/30/24 09:32 125 MLS/HR Ceftriaxone Sodium 50 ml @ 100 mls/hr DAILY@09 IV 11/29/24 09:00 11/30/24 09:33 100 MLS/HR Acetaminophen/ Hydrocodone Bitart 1 tab Q8HP PRN PO 11/28/24 17:15 11/30/24 05:33 1 TAB Enoxaparin Sodium 60 mg BID SC 11/28/24 22:00 11/30/24 09:31 60 MG Furosemide 40 mg BIDD PO 11/30/24 18:00 Examination Morbidly obese female patient lying in the bed in ER, mild distress General: Morbidly obese, warm, low-grade fever, palor, mucosae are moist Cardiovascular: Regular S1 and S2. No murmurs, gallops or rubs. No JVD elevation. 2+ pitting edema bilaterally Respiratory: Minimal Bilateral wheezing and expiratory crackles heard on auscultation, decreased air entry, on NC supplementation Abdomen: Soft, nontender, nondistended, hypoactive bowel sounds, no rebound tenderness, no organomegaly, no masses Genitourinary: Jay seen draining yellowish urine MSK/skin: Mobilizes 4 limbs. Skin is dry and warm Neurological: No motor, no sensitive deficits, normal speech. Pupils are isocoric and reactive. Psych/Mental Status: A/Ox3 laboratory and microbiology Laboratory Tests 11/30/24 05:59 Test 11/30/24 05:59 Range/Units Serum Glucose 91 74-106 mg/dL Microbiology Date/Time Source Procedure Growth Status 11/28/24 13:20 Nose MRSA Screen - Final Complete Labs and/or images reviewed: Labs reviewed by me, Image(s) reviewed by me Problem List/Assessment/Plan Problem List/Assessment/Plan Acute on chronic preserved CHF exacerbation-NYHA class 3-EF 55 ? Pulmonary hypertension - unspecified Acute on chronic hypoxic respiratory failure Likely COPD/asthma exacerbation due to above NSTEMI likely type 2 Chronic oxygen dependence Obesity hypoventilation/YANICK Hypertension Cholelithiasis Morbid obesity Plan/Recommendation Increased Urine output 2500 mL in 24 hours, patient reports feeling better Agree with diuresis with PO Lasix 40 mg b.i.d., strict I&Os and fluid restriction, leg elevation at this time. Echocardiogram LVEF 55%, RVSP 71 Continue CPAP HS Nebulized treatment q.6 hours Continue Antibiotics for probable pneumonia/COPD exacerbation Troponins downtrending, likely NSTEMI type 2 We will continue to follow up Plan discussed with the patient in which all questions have been answered Case discussed with Dr. Ryan Plan discussed with: Patient, Other (Nurse dominguez) My Orders My Orders Orders - CELE MENCHACA RESIDENT Procedure Category Date Status Time Elevate Each Leg W/ 1 ROJELIO 11/29/24 In Process Pillow P 11:04 Pt Request For Service PT 11/29/24 Logged 11:05 Chest Xray 1 View XY 11/30/24 Resulted 08:55 Visit Coding Cardiology RES Date of Service: Nov 30, 2024 Billing Provider: FELIBERTO RYAN Sr., MD Cardiology Common Codes: [id number] HOSP CARE(CELE [place] RESIDENT Nov 30, 2024 10:28
[2024-11-30] MEDS: POTASSIUM CHL 20 Meq TABLET PO ONE (16:42)
[2024-11-30] MEDS: FUROSEMIDE 40 MG TAB PO SCH (17:47)
[2024-12-01] VITALS (13 sets, daily range): BP systolic 114–157; BP diastolic 71–102; PULSE 56–142; RESP 16–23; TEMP 97.1–98; O2SAT 90–100
[2024-12-01 07:30] LABS: Hematocrit 36.4 % (36.0-46.0); Hemoglobin 11.7 g/dL (12.2-16.2); Mean Corpuscular Hemoglobin 29.5 pg (28.0-32.0); Mean Corpuscular Volume 91.4 fL (80.0-100.0); Nucleated Red Blood Cells % 0.1 %
[2024-12-01 07:48] LABS: Anion Gap 4 (5-15); Chloride 101 mmol/L (98-107); Sodium 139 mmol/L (136-145)
[2024-12-01 07:55] LABS: BUN/Creatinine Ratio 21.4 (10.0-20.0); Glucose 98 mg/dL (74-106)
[2024-12-01 07:56] LABS: Blood Urea Nitrogen 25 mg/dL (9-23); Calcium 8.7 mg/dL (8.7-10.4); Carbon Dioxide 34 mmol/L (20-31); Potassium 3.2 mmol/L (3.5-5.1)
[2024-12-01] MEDS ORDERED: ASPI-325 PO (08:33)
[2024-12-01] MEDS ORDERED: LEVO500T91 PO (08:33)
[2024-12-01] MEDS ORDERED: ATOR20TA50 PO (08:33)
[2024-12-01] MEDS ORDERED: PRED20TA2 PO (08:33)
--- NOTE | 2024-12-01 08:35 | DVHDS2 ---
Discharge Summary Date of Admission Nov 28, 2024 at 04:29 Date of Discharge: Dec 01, 2024 Labs/Diagnostic Data: Laboratory Results Test 12/01/24 06:50 11/29/24 06:05 11/28/24 17:55 11/28/24 11:40 White Blood Count 2.4 10^3/uL (4.4-10.8) Red Blood Count 3.99 10^6/uL (4.0-5.20) Hemoglobin 11.7 g/dL (12.2-16.2) Hematocrit 36.4 % (36.0-46.0) Mean Corpuscular Volume 91.4 fL (80.0-100.0) Mean Corpuscular Hemoglobin 29.5 pg (28.0-32.0) Mean Corpuscular Hemoglobin Concent 32.2 g/dL (32.0-36.0) Red Cell Distribution Width 15.7 % (11.8-14.3) Platelet Count 220 10^3/uL (140-450) Mean Platelet Volume 8.8 fL (6.9-10.8) Neutrophils (%) (Auto) 31.2 % (37.0-80.0) Lymphocytes (%) (Auto) 54.1 % (10.0-50.0) Monocytes (%) (Auto) 13.7 % (0.0-12.0) Eosinophils (%) (Auto) 0.4 % (0.0-7.0) Basophils (%) (Auto) 0.6 % (0.0-2.0) Neutrophils # (Auto) 0.8 10 ^3/uL (1.6-8.6) Lymphocytes # (Auto) 1.3 10 ^3/uL (0.4-5.4) Monocytes # (Auto) 0.3 10 ^3/uL (0-1.3) Eosinophils # (Auto) 0 10 ^3/uL (0-0.8) Basophils # (Auto) 0 10 ^3/uL (0-0.2) Nucleated Red Blood Cells 0.1 % Sodium Level 139 mmol/L (136-145) Potassium Level 3.2 mmol/L (3.5-5.1) Chloride Level 101 mmol/L (98-107) Carbon Dioxide Level 34 mmol/L (20-31) Anion Gap 4 (5-15) Blood Urea Nitrogen 25 mg/dL (9-23) Creatinine 1.17 mg/dL (0.550-1.02) Glomerular Filtration Rate Calc 55 mL/min (>90) BUN/Creatinine Ratio 21.4 (10.0-20.0) Serum Glucose 98 mg/dL (74-106) Calcium Level 8.7 mg/dL (8.7-10.4) Phosphorus Level 3.3 mg/dL (2.4-5.1) Magnesium Level 2.0 mg/dL (1.6-2.6) Total Bilirubin 0.3 mg/dL (0.2-1.0) Aspartate Amino Transferase (AST) 24 U/L (13-40) Alanine Aminotransferase (ALT) 17 U/L (7-40) Alkaline Phosphatase 79 U/L (46-116) Total Protein 8.0 g/dL (5.7-8.2) Albumin 4.2 g/dL (3.2-4.8) Urine Color Light-orange (Yellow) Urine Clarity Turbid (Clear) Urine pH 5.5 (5.0-9.0) Urine Specific Kimball 1.017 (1.001-1.035) Urine Protein 1+ (Negative) Urine Ketones 1+ (Negative) Urine Blood 3+ /uL (Negative) Urine Nitrite Negative (Negative) Urine Bilirubin Negative (Negative) Urine Urobilinogen Normal mg/dL (Negative) Urine Leukocyte Esterase Negative /uL (Negative) Urine RBC 927 /hpf (0 - 4) Urine Microscopic WBC 9 /HPF (0-5) Urine Squamous Epithelial Cells Few /hpf (<5) Urine Bacteria None seen /hpf (None Seen) Urine Hyaline Casts Few /lpf (0 - 2) Urine Mucus Few (None Seen) Urine Yeast (Budding) Occasional /hpf (None Urine Glucose Normal mg/dL (Normal) Urine Opiates Screen Pos (NEGATIVE) Urine Fentanyl Screen Neg (NEGATIVE) Urine Barbiturates Screen Neg (NEGATIVE) Urine Phencyclidine Screen Neg (NEGATIVE) Urine Amphetamines Screen Neg (NEGATIVE) Urine Benzodiazepines Screen Neg (NEGATIVE) Urine Cocaine Screen Neg (NEGATIVE) Urine Cannabinoids Screen Neg (NEGATIVE) Influenza Type A Antigen Negative (Negative) Influenza Type B Antigen Negative (Negative) SARS-CoV-2 Antigen (Rapid) Negative (NEGATIVE) Test 11/28/24 07:00 11/28/24 04:58 11/28/24 02:14 Direct Bilirubin 0.1 mg/dL (<0.3) Troponin I High Sensitivity 214 ng/L (</=34) Triglycerides Level 89 mg/dL (< 150) Cholesterol Level 148 mg/dL (< 200) LDL Cholesterol 69 mg/dL (< 100) HDL Cholesterol 57 mg/dL (40-59) Thyroid Stimulating Hormone (TSH) 1.11 uIU/mL (0.55-4.78) Prothrombin Time 11.5 sec (9.3-11.8) Prothrombin Time INR 1.09 (0.9-1.15) Activated Partial Thromboplast Time 23.6 SEC (24.5-34.5) B-Type Natriuretic Peptide 181.20 pg/mL (0-100) Other Laboratory Tests 12/01/24 06:50 Brief Hx & Hospital Course: 54 yo F w morbid obesity, asthma, smoker, COPD? on home o2, HTN, gallstone, chronic pain, HFpEF transferred from OSH for elevated trop. Had fever in OSH. Patient on chronic pain management. Reported never had sleep study, and was pending PFT for COPD, but has childhood asthma and was on dulera and Ventolin. started on steroid, breathing treatment and ceft. lasix to IV. seen improvement, xray showed PNA. later cr went up, diuresis switched to PO lasix with improvement. stable to ne home with po levaquin and prednisone. family will black pickler. have home o2 Condition at Discharge: Stable Final Diagnosis/Problems List asthma exacerbation acute on chronic hypoxic RF COPD? no PFT home O2 morbid obesity HFpEF? acute on chronic diastolic HF pHTN? YANICK/OHS? chronic pain cholelithiasis Type 2 MD demand ischemia fever? ruled out cholecystitis Discharge Disposition: Home Discharge Instruct/Medications Diet: Consistent carbohydrate, Cardiac 2g Na,low cholest Activity: No Restrictions, As Tolerated Follow Up/Referral: [facility] 12/08 pcp for sleep study and PFT Scheduled Aspirin (Aspirin Low Dose), 81 MG PO DAILY Atorvastatin Calcium (Atorvastatin Calcium), 40 MG PO HS Furosemide (Lasix), 40 MG PO BID, (Reported) Levofloxacin Hemihydrate (Levofloxacin), 1 TAB PO DAILY Prednisone (Prednisone), 40 MG PO DAILY Scheduled PRN Albuterol Sulfate (Ventolin Mdi), 90 MCG IN TIDP PRN Miscellaneous Medications Benazepril HCl (Benazepril Hydrochloride), 10 MG PO, (Reported) Triamterene (Triamterene), 50 MG PO, (Reported) Discharge Statement: "Patient was advised to return to the ER or call 911 if any headaches, dizziness, shortness of breath, chest pain, abdominal pain, bleeding, fevers, or worsening of medical condition. Patient was counseled about treatment plan, medications, possible side effects, patientverbalized understanding. All questions were answered to the best of my ability. This discharge took greater then 30 minutes in planning, reviewing documentation, counseling the patient, and discussing with other team members." DME: Diagnosis: PT WEIGHT 430LB, HUGHRNAVDEEP TOO SMALL FOR PT ASSESSMENT ASSESSMENT Assessment COPDe xacerbation pneumonia gp vs gn yanick acute on chronic diastolic hf exacerbation Date of Service: Dec 01, 2024 Billing Provider: AMRILYN RUBIN MD Common Visit Codes: 69759-NTM/OBS DISCH DAY >30min MARILYN RUBIN MD Dec 01, 2024 08:35
[2024-12-01] MEDS: POTASSIUM EFFERVESENT TAB 25 MEQ PO ONE (11:03)
[2024-12-01] MEDS ORDERED: ALBUAER3 IN (12:50)
== END 2024-12-01 19:35 | disposition home or self-care (01) | DRG 280 ==
LOC: ER 01:41 → EDBD 01:41 → OVERFLOW 04:29 → TELE-CENTR 14:28
PROVIDERS: ADMIT Student in an Organized Health Care Education/Training Program; ATTEND Student in an Organized Health Care Education/Training Program
PROC: 5A09357 Assistance with Respiratory Ventilation, Less than 24 Consecutive Hours, Continuous Positive Airway Pressure (ICD-10-PCS; principal; 2024-11-28)
PROC: 5A09357 Assistance with Respiratory Ventilation, Less than 24 Consecutive Hours, Continuous Positive Airway Pressure (ICD-10-PCS; 2024-11-29)
PROC: 5A09357 Assistance with Respiratory Ventilation, Less than 24 Consecutive Hours, Continuous Positive Airway Pressure (ICD-10-PCS; 2024-11-30)
DX: I11.0 Hypertensive heart disease with heart failure (principal); I50.33 Acute on chronic diastolic (congestive) heart failure; I21.A1 Myocardial infarction type 2; J96.21 Acute and chronic respiratory failure with hypoxia; J15.69 Pneumonia due to other Gram-negative bacteria; J15.9 Unspecified bacterial pneumonia; J44.1 Chronic obstructive pulmonary disease with (acute) exacerbation; E66.2 Morbid (severe) obesity with alveolar hypoventilation; J44.0 Chronic obstructive pulmonary disease with (acute) lower respiratory infection; Z68.44 Body mass index [BMI] 60.0-69.9, adult; J45.901 Unspecified asthma with (acute) exacerbation; K80.20 Calculus of gallbladder without cholecystitis without obstruction; G89.29 Other chronic pain; Z91.199 Patient's noncompliance with other medical treatment and regimen due to unspecified reason; Z87.891 Personal history of nicotine dependence; Z79.899 Other long term (current) drug therapy
CPT/HCPCS: 36415; 71045; 76700; 80048; 80053; 80061; 80076; 80307; 81001; 83735; 83880; 84100; 84443; 84484; 85025; 85610; 85730; 87081; 87426; 87804; 93005; 93306; 94640; 94660; 97163; G0378; J1885; J2405